=== PATIENT | male | born 1950 | race Caucasian/White ===

== ENCOUNTER → 2017-04-25 | Outpatient (CLI) | payer MEDICARE ==
[~2017-04-25] MED LIST: ACET325T11 PO; TAMS0.4C67 PO; Z.0.NO CURRENT MEDS
[2017-04-30 23:50] LABS: CRYOGLOBULIN QUALITATIVE POSITIVE (NEGATIVE)
== END ==
LOC: CLAB 08:15
PROVIDERS: ATTEND Specialist
DX: I95.9 Hypotension, unspecified (principal); N42.9 Disorder of prostate, unspecified
CPT/HCPCS: 36415; 82140; 82595